=== PATIENT | female | born 1955 | race Caucasian/White ===

== ENCOUNTER → 2017-03-01 | Day surgery (SDC) | payer MEDICARE ==
[2017-03-01] VITALS (20 sets, daily range): BP systolic 37–156; BP diastolic 68–99
[~2017-03-01] VITALS: Ht 160 cm; Wt 82.1 kg
[~2017-03-01] MED LIST: BENADRYL IV PRN; BILB80CA PO; CHRM1TAB PO; CHRO400T6 PO; CYAN100T PO; DECADRON IV STA; DECADRON ONE; DILAUDID IV PRN; DILAUDID ONE; DIPRIVAN IV ONE; GLIP5TAB10 PO; LACTATED RINGERS 1,000 ML ONE; LEVO125T6 PO; LISI1TAB7 PO; NS 1000ML 1,000 ML ONE; NS 3000ML IRR IR ONE; PHENERGAN IV PRN; SODIUM CHLORIDE IR ONE; SUBLIMAZE ONE; TORADOL ONE; TRAM-47 PO; TRAM50TA PO; ULTRAM ONE; ULTRAM PO STA; VERSED IV ONE; VERSED ONE; XYLOCAINE 2%-EPI 1:100,000 ONE; ZOFRAN IV PRN; ZOFRAN ONE
[2017-03-01] MEDS: NS 1000ML 1,000 ML IV SCH ×2 (06:54→11:55)
--- NOTE | 2017-03-01 13:05 | OPH ---
DATE OF SURGERY: 03/01/2017 PREOPERATIVE DIAGNOSES: 1. Tear of the medial meniscus, left knee. 2. Subchondral fracture about the medial tibial plateau. 3. Subchondral fracture about the medial femoral condyle. POSTOPERATIVE DIAGNOSES: 1. Tear of the medial meniscus, left knee. 2. Subchondral fracture about the medial tibial plateau. 3. Subchondral fracture about the medial femoral condyle. OPERATIVE PROCEDURE: 1. Arthroscopy left knee with partial medial meniscectomy. 2. Through a separate incision is a sub-chondroplasty of the medial tibial plateau. 3. Through the third incision is a sub-chondroplasty of the medial femoral condyle. SURGEON: Ruben Lakhani MD ANESTHESIA: LMA. TOURNIQUET TIME: 45 minutes at 300 mmHg. DRAINS: None. BLOOD LOSS: 10 mL. DESCRIPTION OF INDICATIONS: The patient is a 61-year-old female with pain about the knee for the last several years, getting progressively worse. It has gotten acutely worse over the last 2-3 months. She points to the medial aspect of the knee, both proximal and distal to the joint line as to where most of her pain is. The pain has gotten to the point where she has had to use a cane to assist with ambulation over the last 4-6 weeks. She is unable to do her normal activities of daily living such as shopping or walking for exercise. She has tried physical therapy as well as bracing and cortisone injections. She has a gastric sleeve and cannot take any anti-inflammatories. She does take tramadol. Exam shows full range of motion about the knee, good medial and lateral stability. The patient does have some medial compartment narrowing on her x-rays. The MRI scan shows some arthritic changes about the knee as well as a tear of the posterior horn of her medial meniscus and a significant amount of subchondral edema about the medial tibial plateau as well as the medial femoral condyle. The areas of subchondral edema correspond with the area that the patient's maximal pain is. Because of worsening symptomatology, the patient was taken to the operating room for arthroscopy of the knee with sub-chondroplasty of the medial femoral condyle and medial tibial plateau. DESCRIPTION OF PROCEDURE: This patient was placed in the operating table in the supine position. An LMA anesthetic was induced without difficulty. The patient had the left thigh padded and a tourniquet was applied. The left lower extremity was then sterilely prepped and draped. The patient had the leg elevated for 60 seconds and then the tourniquet was inflated to 300 mmHg. Arthroscopy portals were made superolateral, anterolateral and anteromedial. The patient was noted to have diffuse arthritic narrowing about the patellofemoral joint. 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 She had osteophytes about the medial femoral condyle as well as the lateral femoral condyle. Medial compartment showed some exposed subchondral bone about the tibia. The femoral side had grade 3-4 chondromalacia. There was a tear of the posterior horn of the medial meniscus. A partial medial meniscectomy was performed using a shaver. Intercondylar notch was viewed. The anterior and posterior cruciate ligaments were normal. Her lateral compartment was viewed and there were fairly good articular cartilage proximally and distally. The arthroscopic equipment was then removed from the knee. She had two small stab wounds made, one about the medial tibial plateau and the second about the medial femoral condyle. The patient then had the perforated cannulas drilled into the medial tibial plateau and the medial femoral condyle corresponding to where the MRI scan showed the subchondral edema. Once the positioning of the cannulas were felt to be satisfactory on C-arm view then the calcium pyrophosphate was injected into the tibial plateau as well as to the medial femoral condylar region. Once the pyrophosphate had solidified then the cannulas were removed. The arthroscope was introduced back into the joint. There were some small pieces of calcium pyrophosphate that had entered the joint and these were removed with a shaver. The arthroscopic equipment was then removed from the knee. The portal tracts were closed with 3-0 Ethilon in an interrupted manner. A compressive dressing was applied. The tourniquet was released. She was extubated in the operating room, sent to recovery in stable condition. Ruben Lakhani MD DR: NASH/jensen JOB# [id number]
== END | DRG 563 ==
LOC: SURG 02:11
PROVIDERS: ATTEND Orthopaedic Surgery
DX: S83.242A Other tear of medial meniscus, current injury, left knee, initial encounter (principal); S72.432A Displaced fracture of medial condyle of left femur, initial encounter for closed fracture; S82.142A Displaced bicondylar fracture of left tibia, initial encounter for closed fracture; E11.9 Type 2 diabetes mellitus without complications; E03.9 Hypothyroidism, unspecified; I10 Essential (primary) hypertension; X58.XXXA Exposure to other specified factors, initial encounter; Y93.89 Activity, other specified; Y92.89 Other specified places as the place of occurrence of the external cause; Y99.8 Other external cause status; Z72.89 Other problems related to lifestyle; Z83.3 Family history of diabetes mellitus; Z88.8 Allergy status to other drugs, medicaments and biological substances; Z79.899 Other long term (current) drug therapy; Z98.890 Other specified postprocedural states
CPT/HCPCS: 27899; 29881; 76000; 82948 ×2; J1100 ×2; J1170 ×2; J1885; J2250; J2405; J3010; J3490; J7030 ×3; J7120; C1713

== ENCOUNTER → 2017-06-24 | Outpatient (CLI) | payer MEDICARE ==
[~2017-06-24] MED LIST changes: -BENADRYL IV PRN; -DECADRON IV STA; -DECADRON ONE; -DILAUDID IV PRN; -DILAUDID ONE; -DIPRIVAN IV ONE; -LACTATED RINGERS 1,000 ML ONE; -NS 1000ML 1,000 ML ONE; -NS 3000ML IRR IR ONE; -PHENERGAN IV PRN; -SODIUM CHLORIDE IR ONE; -SUBLIMAZE ONE; -TORADOL ONE; -ULTRAM ONE; -ULTRAM PO STA; -VERSED IV ONE; -VERSED ONE; -XYLOCAINE 2%-EPI 1:100,000 ONE; -ZOFRAN IV PRN; -ZOFRAN ONE
--- NOTE | 2017-06-24 15:18 | DIREP ---
PROCEDURE:MR KNEE WITHOUT CONTRAST [Left] TECHNIQUE:Multi-planar MR images of the left knee were obtained without contrast. COMPARISON:[facility], MR, MRI JOINT LOWER EXTREMITY-LT W/O, 10/11/2016, 01:16 PM. INDICATIONS:KNEE PAIN FINDINGS: MENISCI:Large full-thickness radial tear remains involving the posterior horn and root of the medial meniscus with horizontal component extending to the medial meniscal body and possibly anterior horn. The lateral meniscus demonstrates normal signal and morphology. CRUCIATE LIGAMENTS:Anterior and posterior cruciate ligaments demonstrate normal signal and morphology. COLLATERAL LIGAMENTS:Moderate thickening of the medial collateral ligament without tear seen, finding may reflect old sprain. Lateral collateral ligamentous complex intact. HYALINE CARTILAGE:Full-thickness chondral loss seen throughout the medial femoral condyle and medial tibial plateau. Lateral joint compartment articular cartilage intact. PATELLOFEMORAL:Patellofemoral chondral irregularity with partial-thickness fissuring overlying the median ridge and full-thickness fissuring seen along the medial patellar facet, chondral changes have progressed from prior exam. Quadriceps tendon intact. Mild patellar tendinosis without tear. BONES:Marrow edema in the medial femoral condyle and medial tibial plateau of now progressed of bone infarctions with surrounding reactive marrow edema. Subchondral cyst formation seen in the medial joint compartment. No visible fracture. OTHER:Large joint effusion. Severe synovitis CONCLUSION: 1. Large posterior root medial meniscal tear with horizontal component extending to the posterior horn and body. 2. 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 3. Medial joint compartment osteoarthritis. 4. Progression of patellofemoral chondromalacia. 5. Large joint effusion. Severe synovitis, worsened from prior. Dictated by: Ed Villa M.D. on 06/24/2017 at 02:05 PM Read in [place]
== END | disposition home or self-care (01) ==
LOC: RAD 10:16
PROVIDERS: ATTEND Orthopaedic Surgery
DX: M17.12 Unilateral primary osteoarthritis, left knee (principal); M94.262 Chondromalacia, left knee; M65.88 Other synovitis and tenosynovitis, other site
CPT/HCPCS: 73721